=== PATIENT | male | born 1935 | race Caucasian/White ===

== ENCOUNTER → 2016-06-01 | Outpatient (CLI) | payer OTHER | END | disposition home or self-care (01) | LOC: PCVCCLINIC 10:00 | PROVIDERS: ATTEND Internal Medicine | DX: I25.10 Atherosclerotic heart disease of native coronary artery without angina pectoris (principal); I42.9 Cardiomyopathy, unspecified; I47.2 Ventricular tachycardia; I48.0 Paroxysmal atrial fibrillation; E11.9 Type 2 diabetes mellitus without complications; I65.29 Occlusion and stenosis of unspecified carotid artery; E78.5 Hyperlipidemia, unspecified; Z95.810 Presence of automatic (implantable) cardiac defibrillator | CPT/HCPCS: 80061; 93005; G0463 ==

== ENCOUNTER → 2016-12-05 | Outpatient (CLI) | payer OTHER | END | disposition home or self-care (01) | LOC: PCVCCLINIC 13:47 | PROVIDERS: ATTEND Internal Medicine | DX: I25.10 Atherosclerotic heart disease of native coronary artery without angina pectoris (principal); I10 Essential (primary) hypertension; I47.2 Ventricular tachycardia; I48.0 Paroxysmal atrial fibrillation; I65.23 Occlusion and stenosis of bilateral carotid arteries; I45.10 Unspecified right bundle-branch block; R94.31 Abnormal electrocardiogram [ECG] [EKG]; E78.5 Hyperlipidemia, unspecified; E11.9 Type 2 diabetes mellitus without complications; Z95.810 Presence of automatic (implantable) cardiac defibrillator; Z87.891 Personal history of nicotine dependence; Z79.899 Other long term (current) drug therapy; Z79.82 Long term (current) use of aspirin | CPT/HCPCS: 80061; 93005; G0463 ==

== ENCOUNTER → 2017-06-05 | Outpatient (CLI) | payer MEDICARE | END | disposition home or self-care (01) | LOC: PCVCIMAG 09:53 | DX: I65.23 Occlusion and stenosis of bilateral carotid arteries (principal); I25.10 Atherosclerotic heart disease of native coronary artery without angina pectoris; I47.2 Ventricular tachycardia; I48.0 Paroxysmal atrial fibrillation; I10 Essential (primary) hypertension; E78.5 Hyperlipidemia, unspecified; E11.9 Type 2 diabetes mellitus without complications; Z95.810 Presence of automatic (implantable) cardiac defibrillator; Z87.891 Personal history of nicotine dependence; Z79.899 Other long term (current) drug therapy | CPT/HCPCS: 80061; 93005; 93306; 93880; G0463 ==

== ENCOUNTER → 2017-12-08 | Outpatient (CLI) | payer MEDICARE | END | disposition home or self-care (01) | LOC: PCVCCLINIC 14:41 | PROVIDERS: ATTEND Internal Medicine | DX: I25.10 Atherosclerotic heart disease of native coronary artery without angina pectoris (principal); I47.2 Ventricular tachycardia; I10 Essential (primary) hypertension; I48.0 Paroxysmal atrial fibrillation; E78.5 Hyperlipidemia, unspecified; I65.23 Occlusion and stenosis of bilateral carotid arteries; E11.9 Type 2 diabetes mellitus without complications; Z95.810 Presence of automatic (implantable) cardiac defibrillator; Z79.82 Long term (current) use of aspirin; Z87.891 Personal history of nicotine dependence | CPT/HCPCS: 80061; 93005; 93283; G0463 ==

== ENCOUNTER → 2018-06-13 | Outpatient (CLI) | payer MEDICARE ==
--- NOTE | 2018-06-13 16:32 | PCVCIMAG ---
APPROVED REPORT Indications Stenosis Risk Factors Hyperlipidemia Diabetes, Doppler Spectral Velocity Analysis PSV / EDVPSV / EDV ECA (R) 64 / 8 cm/sECA (L) 72 / 5 cm/s dICA (R) 55 / 18 cm/sdICA (L) 77 / 22 cm/s Rob (R) 70 / 25 cm/smICA (L) 60 / 21 cm/s pICA (R) 39 / 10 cm/spICA (L) 42 / 12 cm/s Bulb (R) 35 / 6 cm/sBulb (L) 43 / 10 cm/s dCCA (R) 66 / 14 cm/sdCCA (L) 64 / 12 cm/s mCCA (R) 81 / 18 cm/smCCA (L) 95 / 17 cm/s Vert (R) 32 / 9 cm/sVert (L) 44 / 9 cm/s ICA/CCA 0.87ICA/CCA 0.81 Real Time B-Mode Imaging Vert. (R)AntegradeVert. (L)Antegrade Findings The right carotid bulb has moderate calcified plaque. The right proximal internal carotid artery shows <40% stenosis. The right common carotid artery shows <40% stenosis. The right external carotid artery shows no significant stenosis. The left carotid bulb has moderate plaque. The left proximal internal carotid artery shows <40% stenosis. The left common carotid artery shows no significant stenosis. The left external carotid artery shows no significant stenosis. Conclusion 1. Right common and internal carotid artery stenoses (<40%) 2. Left internal carotid artery stenosis (<40%) 3. Antegrade vertebral flow
--- NOTE | 2018-06-13 16:37 | PCVCIMAG ---
APPROVED REPORT Study performed: 06/13/2018 13:29:41 EXAM: Comprehensive 2D, Doppler, and color-flow Echocardiogram Patient Location: Echo lab Room #: 3Status: routine BSA: 2.17 HR: 72 bpmBP: 98/62 mmHg Rhythm: Atrial Fibrillation Other Information Study Quality: Adequate Indications Hypotension Diabetes Atrial Fibrillation CAD Syncope S/P STENT LAD, HX HYPOTENSION,FALLS 2D Dimensions IVSd: 10.72 (7-11mm)LVOT Diam: 26.22 (18-24mm) LVDd: 63.02 mm PWd: 8.35 (7-11mm)Ascending Ao: 38.58 (22-36mm) LVDs: 55.26 (25-40mm) Left Atrium: 45.98 (27-40mm) Aortic Root: 32.79 mm LV Single Plane 4CH: 45.14 % LV Single Plane 2CH: 37.55 % Biplane EF: 41.3 % Volumes Left Atrial Volume (Systole) Single Plane 4CH: 101.49 mLSingle Plane 2CH: 92.77 mL Biplane LA Volume: 98.00 mLLA ESV Index: 45.00 mL/m2 Aortic Valve AoV Peak Willie.: 1.05 m/s AO Peak Gr.: 5.32 mmHgLVOT Max P.07 mmHg LVOT Max V: 0.52 m/s LUZMARIA Vmax: 2.66 cm2 Mitral Valve MV E Max Willie.: 0.97 m/s MV PHT: 40.14 ms MVA (PHT): 5.48 cm2 TDI E/Lateral E': 6.93E/Medial E': 12.13 Medial E' Willie.: 0.08 m/s Lateral E' Willie.: 0.14 m/s Pulmonary Valve PV Peak Willie.: 0.95 m/sPV Peak Gr.: 3.63 mmHg Tricuspid Valve TR Peak Willie.: 2.60 m/s TR Peak Gr.: 27.12 mmHg TV Vmax: 0.58 m/sPA Pressure: 34.00 mmHg Left Ventricle Left ventricle is moderately dilated. Paradoxical septal motion consistent with paced rhythm. Mild basal septal hypertrophy is present. Left ventricular systolic function is mild to moderately decreased. Hypokinesis base of inferolateral and inferior [place]. LVEF is 40-45%. This study is not technically sufficient to allow evaluation of the LV diastolic function due to atrial fibrillation. Right Ventricle The right ventricle is normal size. The right ventricular systolic function is normal. Atria Left atrium is moderately dilated. Right atrium is moderately dilated. Pacemaker lead is present in the right atrium. Aortic Valve Aortic valve is trileaflet, mildly calcified. No aortic regurgitation is present. There is no aortic valvular stenosis. Mitral Valve The mitral valve is normal in structure. Moderate mitral regurgitation. No evidence of mitral valve stenosis. Tricuspid Valve The tricuspid valve is normal in structure. Mild tricuspid regurgitation with a PA pressure of 34 mmHg. Mild pulmonary hypertension. Pulmonic Valve The pulmonary valve is normal in structure. There is no pulmonic valvular regurgitation. Great Vessels The aortic root is normal in size. IVC is not well visualized but appears normal in size. Pericardium There is no pericardial effusion. <Conclusion> Left ventricular systolic function is mild to moderately decreased. Hypokinesis base of inferolateral and inferior [place]. LVEF is 40-45%. Both atria are moderately dilated. Aortic valve is trileaflet, mildly calcified. No aortic regurgitation or stenosis. The mitral valve is normal in structure. Moderate mitral regurgitation. Mild tricuspid regurgitation with a pulmonary artery pressure of 34 mmHg. There is no pericardial effusion.
== END | disposition home or self-care (01) ==
LOC: PCVCIMAG 13:54
PROVIDERS: ATTEND Internal Medicine
DX: I65.23 Occlusion and stenosis of bilateral carotid arteries (principal); I08.1 Rheumatic disorders of both mitral and tricuspid valves; I25.10 Atherosclerotic heart disease of native coronary artery without angina pectoris; I47.2 Ventricular tachycardia; I48.1 Persistent atrial fibrillation; I95.1 Orthostatic hypotension; E11.9 Type 2 diabetes mellitus without complications; Z95.810 Presence of automatic (implantable) cardiac defibrillator; Z87.891 Personal history of nicotine dependence
CPT/HCPCS: 36415; 80061; 93005; 93306; 93880; G0463